=== PATIENT | male | born 1955 | race Caucasian/White ===

== ENCOUNTER 2016-09-21 06:51 | Day surgery (SDC) | payer OTHER ==
--- NOTE | ~2016-09-21 | EGD ---
EGD REPORT [facility] [address] [id number] NAME: AGGAN SUÁREZ JR : 51 STATUS : REG [facility] PAT#: [id number] AGE: 61 ADM/REG DATE : 09/21/16 MR#: [id number] REPORT SERV DATE: 09/21/16 DICTATED BY: NABIL LEO DATE: 09/21/16 REPORT STATUS : Draft TRANSCRIBED BY: [employer] DATE: 09/21/16 [facility] Patient Name: Gagan Suárez Date of : 1955 Attending MD: NABIL LEO MD Procedure Date No Time: 09/21/2016 Procedure: Colonoscopy Indications: FH of Colon Cancer - 1st degree relative, Personal history of malignant neoplasm of the colon Referring MD: NABIL MAGUIRE Medicines: as per anesthesia Complications: No immediate complications. Procedure: Pre-Anesthesia Assessment: - ASA Grade Assessment: III - A patient with severe systemic disease. After I obtained informed consent, the scope was passed under direct vision. Throughout the procedure, the patient's blood pressure, pulse, and oxygen saturations were monitored continuously. The PCF [id number] was introduced through the anus and advanced to the cecum, identified by appendiceal orifice and ileocecal valve. The colonoscopy was performed without difficulty. The patient tolerated the procedure. The quality of the bowel preparation was adequate to identify polyps. Findings: The perianal and digital rectal examinations were normal. There was evidence of a prior end-to-end colo-colonic anastomosis in the sigmoid colon. This was patent. This was characterized by healthy appearing mucosa. This was traversed. A sessile polyp was found in the ascending colon. The polyp was 3 mm in size. The polyp was removed with a cold biopsy forceps. Resection and retrieval were complete. A single medium-mouthed diverticulum was found in the transverse colon. Internal hemorrhoids were found during endoscopy and were mild. Impression: - Patent end-to-end colo-colonic anastomosis. - One 3 mm polyp in the ascending colon. Resected and retrieved. - Diverticulosis in the transverse colon. - Internal hemorrhoids. Recommendation: - Await pathology results. - Repeat colonoscopy for surveillance based on pathology results. EGD REPORT [address] [id number] NAME: GAGAN SUÁREZ JR : 51 STATUS : REG [facility] PAT#: [id number] AGE: 61 ADM/REG DATE : 09/21/16 MR#: [id number] REPORT SERV DATE: 09/21/16 DICTATED BY: NABIL LEO DATE: 09/21/16 REPORT STATUS : Draft TRANSCRIBED BY: [employer] DATE: 09/21/16 Procedure Code(s): --- Professional --- 44910, Colonoscopy, flexible, proximal to splenic flexure; with biopsy, single or multiple Diagnosis Code(s): --- Professional --- Z98.0, Intestinal bypass and anastomosis status D12.2, Benign neoplasm of ascending colon K64.8, Other hemorrhoids K57.30, Diverticulosis of large intestine without perforation or abscess without bleeding Z80.0, Family history of malignant neoplasm of digestive organs Z85.038, Personal history of other malignant neoplasm of large intestine CPT copyright 2013 [employer]. All rights reserved. The codes documented in this report are preliminary and upon appliance assembler review may be revised to meet current compliance requirements. NABIL LEO MD 09/21/2016 9:04 AM This report has been signed electronically. Number of Addenda: 0 Note Initiated On: 09/21/2016 8:34 AM Scope Withdrawal Time 0 hours 9 minutes 50 seconds [id number] [id number]
[~2016-09-21 06:51] MED LIST: ASAB PO; DEP250 PO; DILANTIN; HEADACHE MEDICINE; PRIN5 PO; ZETIA PO
== END 2016-09-21 23:59 | disposition home or self-care (01) ==
LOC: DMU 06:51
PROVIDERS: Internal Medicine Gastroenterology
PROC: 0DBK8ZX Excision of Ascending Colon, Via Natural or Artificial Opening Endoscopic, Diagnostic (ICD-10-PCS; principal; 2016-09-21 08:00)
DX: Z12.11 Encounter for screening for malignant neoplasm of colon (principal); K63.5 Polyp of colon; K64.8 Other hemorrhoids; K57.30 Diverticulosis of large intestine without perforation or abscess without bleeding; I10 Essential (primary) hypertension; Z85.038 Personal history of other malignant neoplasm of large intestine; Z80.0 Family history of malignant neoplasm of digestive organs; Z98.0 Intestinal bypass and anastomosis status
CPT/HCPCS: 88305